=== PATIENT | female | born 1975 | race Caucasian/White ===

== ENCOUNTER 2017-10-11 00:37 | Emergency (ER) | END 2017-10-11 05:12 | disposition left against medical advice (07) ==

== ENCOUNTER 2017-10-11 20:52 | Emergency (ER) | END 2017-10-12 00:14 | disposition left against medical advice (07) ==

== ENCOUNTER 2018-11-02 21:52 | Emergency (ER) | payer SELFPAY ==
[~2018-11-02] VITALS: Wt 97.0 kg
== END 2018-11-03 01:30 | disposition left against medical advice (07) ==
LOC: FTE 21:52
DX: Z53.21 Procedure and treatment not carried out due to patient leaving prior to being seen by health care provider (principal)